=== PATIENT | female | born 2000 | race Caucasian/White ===

== ENCOUNTER 2021-03-10 06:42 | Emergency (ER) | payer OTHER ==
[2021-03-10 06:54] VITALS: BMI 22.6
[2021-03-10] MEDS ORDERED: SODIUM CHLORIDE 0.9% 500 ML INFUS.BAG IV ONE (07:31)
[2021-03-10] MEDS ORDERED: ACETAMINOPHEN 500 MG TABLET (FP) PO ONE (07:50)
[2021-03-10] MEDS ORDERED: ACETAMINOPHEN 500 MG TABLET (FP) ONE (08:00)
[2021-03-10 08:30] LABS: BASO % 0.7 % (0-2.0); EOS % 0.1 % (0-4.5); HEMATOCRIT 44.4 % (32.4-45.2); HEMOGLOBIN 15.6 GM/dl (10.7-15.3); LYMPH % 8.8 % (8-40); MCH 30.6 pg (25.7-33.7); MCHC 35.2 g/dl (32.0-36.0); MEAN CELL VOLUME 86.8 fl (80-96); MEAN PLT VOLUME 10.4 fl (7.5-11.1); MONO % 5.7 % (3.8-10.2); NEUT % 84.7 % (42.8-82.8); PLATELET COUNT 179 K/MM3 (134-434); RBC 5.11 M/mm3 (3.60-5.2); RDW 12.7 % (11.6-15.6); WHITE BLOOD COUNT 8.8 K/mm3 (4.0-10.8)
[2021-03-10 08:48] LABS: ALBUMIN 4.5 g/dl (3.4-5.0); BILIRUBIN,TOTAL 0.7 mg/dl (0.2-1); CALCIUM 9.4 mg/dl (8.5-10); CREATININE 0.7 mg/dl (0.55-1.3); TOT PROT 7.5 g/dl (6.4-8.2)
[2021-03-10] MEDS ORDERED: IBUPROFEN 600 MG TABLET (FP) PO ONE ×2 (08:58)
[2021-03-10 09:00] VITALS: BP 99/88; PULSE 108; TEMP 99.6
== END 2021-03-10 09:51 | disposition home or self-care (01) ==
LOC: FER 06:42
DX: T50.Z95A Adverse effect of other vaccines and biological substances, initial encounter (principal)
CPT/HCPCS: 36415; 71045-TC-FY; 80053; 82550; 84484; 84703; 85025; 86769; 93005; 99284-25; C9803; U0003; U0005